=== PATIENT | male | born 1960 | race Caucasian/White ===

== ENCOUNTER 2017-01-18 09:00 | Emergency (ER) | payer OTHER ==
[~2017-01-18] VITALS: Ht 182.9 cm; Wt 118.0 kg
[2017-01-18 09:12] VITALS: BP 137/73; PULSE 58; RESP 18; TEMP 98.2; O2SAT 98
[2017-01-18] MEDS ORDERED: ACETAMINOPHEN/HYDROcodone 325 MG/5 MG TAB PO ONE (09:30)
--- NOTE | 2017-01-18 09:31 | PD ---
HPI Chief Complaint: Fall Time Seen by Provider: 09:22 Travel History International Travel<30 days: No Contact w/Intl Traveler<30days: No Traveled to known affect area: No History of Present Illness HPI 56-year-old male presents to the emergency department with right foot pain after slip and fall that occurred just prior to arrival. States that he did a split and landed on his right foot and describes it as an inversion. Patient states he has chronic back pain and feels that his muscles are tightening up. Patient denies numbness or tingling, weakness of the extremities. Patient does have full range of motion of the right foot is having pain on the outside of his right foot. Patient is not taking anything for this pain. He is diabetic but denies neuropathy. PFSH Past Medical History High Cholesterol: Yes Diabetes: Yes Patient Takes Glucophage: Yes (METFORMIN ) Past Surgical History Other Surgery: Yes (FACIAL ) Social History Alcohol Use: No Tobacco Use: No Substance Use: No (HX OF 2009) Allergies-Medications (Allergen,Severity, Reaction): Coded Allergies: meperidine (Verified Allergy, Severe, Hallucinations, 01/18/17) Reported Meds & Prescriptions Reported Meds & Active Scripts Active Robaxin (Methocarbamol) 500 Mg Tab 500 Mg PO TID 3 Days Review of Systems Except as stated in HPI: all other systems reviewed are Neg Physical Exam Narrative GENERAL: Well-nourished, well-developed patient. SKIN: Focused skin assessment warm/dry. HEAD: Normocephalic. EYES: No scleral icterus. No injection or drainage. NECK: Supple, trachea midline. No JVD or lymphadenopathy. CARDIOVASCULAR: Regular rate and rhythm without murmurs, gallops, or rubs. RESPIRATORY: Breath sounds equal bilaterally. No accessory muscle use. MUSCULOSKELETAL: No cyanosis, or edema. BACK: No CVA tenderness. No rash. No point tenderness on palpation of the spine. TTP paraspinous muscles lumbar region Right foot- no obvious ecchymosis or deformities. Tenderness palpation of the fifth metatarsal area. Neurovascular intact BACK: Nontender without obvious deformity. No CVA tenderness. Data Data Last Documented VS Vital Signs Date Time Temp Pulse Resp B/P (MAP) Pulse Ox O2 Delivery O2 Flow Rate FiO2 01/18/17 09:17 18 98 Room Air 01/18/17 09:12 98.2 58 137/73 (94) Orders Orders Foot, Complete (Cfr0asl) (01/18/17 ) Ankle, Complete ([id number]) (01/18/17 ) Acetamin-Hydrocod 325-5 Mg ([place] 5-325 (01/18/17 09:30) Splint Or Brace Apply/Monitor (01/18/17 10:13) Ed Discharge Order (01/18/17 10:13) MDM Medical Decision Making Medical Screen Exam Complete: Yes Emergency Medical Condition: Yes Differential Diagnosis Left ankle sprain versus strain versus fracture Left foot contusion versus fracture versus sprain Lumbar strain versus sprain versus fracture Narrative Course 56-year-old male presents to the emergency department with right foot pain after slip and fall that occurred just prior to arrival. States that he did a split and landed on his right foot and describes it as an inversion. Patient states he has chronic back pain and feels that his muscles are tightening up. Patient denies numbness or tingling, weakness of the extremities. Patient does have full range of motion of the right foot is having pain on the outside of his right foot. Patient is not taking anything for this pain. He is diabetic but denies neuropathy. Patient denies head trauma, LOC, neck pain. No red flags Vital signs stable [facility] but does not take any medication for this chronically. Physical exam- consistent with an ankle and sprain versus contusion, TTP over paraspinous muscles lumbar region. No midline tenderness. X-ray- no fracture Hydrocodone administered in the emergency department Because the patient's chronic back pain prescribed muscle relaxer to reduce the possibility of return to the emergency department. Patient advised follow-up with his primary care physician. Diagnosis Primary Impression: Right ankle sprain Qualified Codes: S93.401A - Sprain of unspecified ligament of right ankle, initial encounter Additional Impressions: Contusion of right foot Qualified Codes: S90.31XA - Contusion of right foot, initial encounter Lumbar strain Qualified Codes: S39.012A - Strain of muscle, fascia and tendon of lower back , initial encounter Referrals: Law Enforcement Officer Primary Care Physician Additional Instructions: Take muscle relaxers sparingly and only as needed for your back discomfort. Continue ice for your ankle and foot pain. May use Tylenol or Motrin per package instructions. He may wrap her foot for comfort. Scripts Methocarbamol (Robaxin) 500 Mg Tab 500 MG PO TID for Muscle Spasm for 3 Days, TAB 0 Refills Prov: Katherine Jean MD 01/18/17 Disposition: 01 DISCHARGE HOME Condition: Stable Olive Cruz Jan 18, 2017 09:31
[2017-01-18] MEDS ORDERED: ROBA500T PO (09:32)
--- NOTE | 2017-01-18 10:02 | RADRPT ---
EXAM DATE/TIME: 01/18/2017 09:45 [facility] COMPARISON: No previous studies available for comparison. INDICATIONS : Right ankle pain post twisting. MEDICAL HISTORY : None. SURGICAL HISTORY : None. ENCOUNTER: Initial ACUITY: 1 day PAIN SCORE: 3/10 LOCATION: Right ankle FINDINGS: Three view exam was performed of the right ankle. The bony structures are in normal alignment. No e vidence of fracture, dislocation, or soft tissue swelling. The ankle mortise is intact. A prominent retrocalcaneal spur. No radiopaque foreign bodies are seen. Bony mineralization is normal. CONCLUSION: No evidence of recent bony injury. Rambo Palma MD on January 18, 2017 at 10:00 Board Certified Radiologist. This report was verified electronically.
--- NOTE | 2017-01-18 10:03 | RADRPT ---
EXAM DATE/TIME: 01/18/2017 09:47 [facility] COMPARISON: No previous studies available for comparison. INDICATIONS : Right foot pain across the matetarsal region post twisting. MEDICAL HISTORY : None. SURGICAL HISTORY : None. ENCOUNTER: Initial ACUITY: 1 day PAIN SCORE: 8/10 LOCATION: Right foot FINDINGS: Three view examination of the right foot demonstrates no soft tissue swelling, dislocation, or fractu re. The tarsal bones appear intact. Degenerative changes in the 1st MTP joint.. The calcaneus is intact. Bony mineralization is normal. CONCLUSION: No evidence of recent bone injury. Rambo Palma MD on January 18, 2017 at 10:00 Board Certified Radiologist. This report was verified electronically.
== END 2017-01-18 10:52 | disposition home or self-care (01) ==
LOC: NEPD 09:00
DX: S93.401A Sprain of unspecified ligament of right ankle, initial encounter (principal); S90.31XA Contusion of right foot, initial encounter; S39.012A Strain of muscle, fascia and tendon of lower back, initial encounter; M54.9 Dorsalgia, unspecified; G89.29 Other chronic pain; E11.9 Type 2 diabetes mellitus without complications; W01.0XXA Fall on same level from slipping, tripping and stumbling without subsequent striking against object, initial encounter; Z79.84 Long term (current) use of oral hypoglycemic drugs
CPT/HCPCS: 73610; 73630; 99283

== ENCOUNTER 2017-07-11 06:43 | Observation (INO) | payer OTHER ==
[2017-07-11] VITALS (11 sets, daily range): BP systolic 90–147; BP diastolic 52–90; PULSE 50–72; RESP 16–22; TEMP 97.5–98.1; O2SAT 93–98
[~2017-07-11] VITALS: Ht 185.4 cm; Wt 119.0 kg
[~2017-07-11 06:43] MED LIST: ROBA500T PO
[2017-07-11] MEDS ORDERED: ASPIRIN 325 MG TAB PO ONE (07:00)
--- NOTE | 2017-07-11 07:06 | PD ---
HPI Chief Complaint: Chest Pain Time Seen by Provider: 06:53 Travel History International Travel<30 days: No Contact w/Intl Traveler<30days: No Traveled to known affect area: No History of Present Illness HPI 57yo M with PMH of HTN, DM, HLD presents to the ED with c/o chest pain for 3 days. Pain is actually left back radiating to chest that is sharp and dull. Started having nausea and diaphoresis last night. Pain is worst with movement. Denies any fever, cough, vomiting, abdominal pain, focal weakness or numbness , trauma. Pt said his brother of [place] in mid 50s and father had heart problems. Pt said he had a stress test recently that was abnormal and had dye in his heart but cannot really describe it. Pt follows at the [place] and does not know further details. Former smoker. Pt had recent right rotator cuff surgery. PFSH Past Medical History High Cholesterol: Yes Diabetes: Yes Patient Takes Glucophage: No Past Surgical History Other Surgery: Yes (FACIAL ) Social History Alcohol Use: No Tobacco Use: No Substance Use: No (HX OF 2009) Allergies-Medications (Allergen,Severity, Reaction): Coded Allergies: meperidine (Verified Allergy, Severe, Hallucinations, 07/11/17) Reported Meds & Prescriptions Reported Meds & Active Scripts Active Metformin (Metformin HCl) 500 Mg Tab 500 Mg PO TIDPC Review of Systems Except as stated in HPI: all other systems reviewed are Neg Physical Exam Narrative GENERAL: 57yo M in mild distress. SKIN: Focused skin assessment warm/dry. HEAD: Atraumatic. Normocephalic. EYES: Pupils equal and round. No scleral icterus. No injection or drainage. ENT: No nasal bleeding or discharge. Mucous membranes pink and moist. NECK: Trachea midline. No JVD. CARDIOVASCULAR: Regular rate and rhythm. No murmur appreciated. RESPIRATORY: No accessory muscle use. Clear to auscultation. Breath sounds equal bilaterally. GASTROINTESTINAL: Abdomen soft, non-tender, nondistended. BACK: Mild ttp left and mid thoracic spine. No mass or step off. No erythema. MUSCULOSKELETAL: No obvious deformities. No clubbing. No cyanosis. +Bilateral lower extremity edema. RUE in sling. NEUROLOGICAL: Awake and alert. No obvious cranial nerve deficits. Motor grossly within normal limits in all extremities. Normal speech. PSYCHIATRIC: Appropriate mood and affect; insight and judgment normal. Data Data Last Documented VS Vital Signs Date Time Temp Pulse Resp B/P (MAP) Pulse Ox O2 Delivery O2 Flow Rate FiO2 07/11/17 10:45 54 20 126/72 (90) 97 Nasal Cannula 2.00 07/11/17 06:48 98.1 Orders Orders Basic Metabolic Panel (Bmp) (07/11/17 06:53) Complete Blood Count With Diff (07/11/17 06:53) Magnesium (Mg) (07/11/17 06:53) Prothrombin Time / Inr (Pt) (07/11/17 06:53) Act Partial Throm Time (Ptt) (07/11/17 06:53) Troponin I (07/11/17 06:53) Chest, Single Ap (07/11/17 06:53) Aspirin (Aspirin) (07/11/17 07:00) Nitroglycerin Sl (Nitrostat Sl) (07/11/17 07:00) Electrocardiogram (07/11/17 06:49) Sodium Chlor 0.9% 1000 Ml Inj (Ns 1000 M (07/11/17 07:45) Morphine Inj (Morphine Inj) (07/11/17 07:45) Ct Pulmonary Angiogram (07/11/17 ) Iohexol 350 Inj (Omnipaque 350 Inj) (07/11/17 09:37) Admit Order (Ed Use Only) (07/11/17 10:57) Labs Laboratory Tests Test 07/11/17 06:55 White Blood Count 5.2 TH/MM3 Red Blood Count 4.97 MIL/MM3 Hemoglobin 14.7 GM/DL Hematocrit 43.3 % Mean Corpuscular Volume 87.1 FL Mean Corpuscular Hemoglobin 29.6 PG Mean Corpuscular Hemoglobin Concent 34.0 % Red Cell Distribution Width 13.9 % Platelet Count 256 TH/MM3 Mean Platelet Volume 9.6 FL Neutrophils (%) (Auto) 47.7 % Lymphocytes (%) (Auto) 36.7 % Monocytes (%) (Auto) 10.4 % Eosinophils (%) (Auto) 4.4 % Basophils (%) (Auto) 0.8 % Neutrophils # (Auto) 2.5 TH/MM3 Lymphocytes # (Auto) 1.9 TH/MM3 Monocytes # (Auto) 0.5 TH/MM3 Eosinophils # (Auto) 0.2 TH/MM3 Basophils # (Auto) 0.0 TH/MM3 CBC Comment DIFF FINAL Differential Comment Prothrombin Time 9.4 SEC Prothromb Time International Ratio 0.9 RATIO Activated Partial Thromboplast Time 24.3 SEC Blood Urea Nitrogen 16 MG/DL Creatinine 1.01 MG/DL Random Glucose 149 MG/DL Calcium Level 8.5 MG/DL Magnesium Level 2.6 MG/DL Sodium Level 140 MEQ/L Potassium Level 4.1 MEQ/L Chloride Level 106 MEQ/L Carbon Dioxide Level 25.6 MEQ/L Anion Gap 8 MEQ/L Estimat Glomerular Filtration Rate 76 ML/MIN Troponin I LESS THAN 0.02 NG/ML MDM Medical Decision Making Medical Screen Exam Complete: Yes Emergency Medical Condition: Yes Interpretation(s) EKG: Sinus bradycardia at 58bpm. No ST segment elevation or depression. Differential Diagnosis ACS vs. musculoskeletal pain vs. costochondritis Narrative Course 57yo M with atypical chest pain. However, pt has multiple cardiac risk factors so will obtain labs including cardiac enzyme, CXR. Pt seen at end of my shift and sign out to next team to follow up. Diagnosis Primary Impression: Chest pain Qualified Codes: R07.9 - Chest pain, unspecified Admitting Information Admitting Physician Requests: Observation Scripts Metformin (Metformin) 500 Mg Tab 500 MG PO TIDPC for Blood Sugar Management, #90 TAB 0 Refills Prov: Duke Pichardo 07/11/17 Mikayla Mccormack DO July 11, 2017 07:06
[2017-07-11] MEDS: NITROGLYCERIN 0.4 MG SL 25 TABS/BTL SL SCH ×3 (07:27→07:37)
[2017-07-11] MEDS ORDERED: METF500T PO ×2 (07:45→16:40)
[2017-07-11] MEDS ORDERED: MORPHINE SULFATE 4 MG/ML INJ IV PUSH ONE (07:45)
[2017-07-11] MEDS ORDERED: SODIUM CHLOR 0.9% 1000 ML INJ 1,000 ML IV SCH (07:45)
--- NOTE | 2017-07-11 07:55 | RADRPT ---
EXAM DATE/TIME: 07/11/2017 07:42 [facility] COMPARISON: No previous studies available for comparison. INDICATIONS : Chest pain. MEDICAL HISTORY : None. SURGICAL HISTORY : None. ENCOUNTER: Initial ACUITY: 3 days PAIN SCORE: 8/10 LOCATION: Bilateral chest FINDINGS: A single view of the chest demonstrates the lungs to be symmetrically aerated without evidence of mas s, infiltrate or effusion. There is a faint questionable 5 mm pulmonary nodule overlying the right up per lung. The cardiomediastinal contours are unremarkable. Osseous structures are intact. CONCLUSION: 1. No acute pulmonary infiltrates. 2. Questionable faint 5 mm pulmonary nodule overlying right upper lung. Recommend a noncontrast CT th orax on a nonemergent outpatient basis for further evaluation. Brenden Malagon MD on July 11, 2017 at 7:52 Board Certified Radiologist. This report was verified electronically.
[2017-07-11 08:09] LABS: AUTOMATED NEUTROPHIL # 2.5 TH/MM3 (1.8-7.7); BASOPHIL % 0.8 % (0.0-2.0); EOSINOPHIL # 0.2 TH/MM3 (0-0.4); EOSINOPHIL % 4.4 % (0.0-4.0); HEMATOCRIT 43.3 % (39.0-51.0); HEMOGLOBIN 14.7 GM/DL (13.0-17.0); LYMPH % 36.7 % (9.0-44.0); LYMPHOCYTE # 1.9 TH/MM3 (1.0-4.8); MEAN CELL VOLUME 87.1 FL (80.0-100.0); MEAN CORPUSCULAR HEMOGLOBIN 29.6 PG (27.0-34.0); MEAN PLATELET VOLUME 9.6 FL (7.0-11.0); MONO % 10.4 % (0.0-8.0); MONOCYTE # 0.5 TH/MM3 (0-0.9); NEUT % 47.7 % (16.0-70.0); PLATELET COUNT 256 TH/MM3 (150-450); RED BLOOD COUNT 4.97 MIL/MM3 (4.50-5.90); RED CELL DISTRIBUTION WIDTH 13.9 % (11.6-17.2); WHITE BLOOD COUNT 5.2 TH/MM3 (4.0-11.0)
[2017-07-11 08:20] LABS: INTERNATIONAL NORMALIZED RATIO 0.9 RATIO; PROTHROMBIN TIME - PATIENT 9.4 SEC (9.8-11.6)
[2017-07-11 08:33] LABS: TROPONIN I LESS THAN 0.02 NG/ML (0.02-0.05)
[2017-07-11 08:35] LABS: BICARBONATE 25.6 MEQ/L (21.0-32.0); BLOOD UREA NITROGEN 16 MG/DL (7-18); CALCIUM 8.5 MG/DL (8.5-10.1); CHLORIDE 106 MEQ/L (98-107); CREATININE 1.01 MG/DL (0.60-1.30); GLOMERULAR FILTRATION RATE 76 ML/MIN (>89); GLUCOSE,RANDOM 149 MG/DL (74-106); SODIUM (NA) 140 MEQ/L (136-145)
[2017-07-11 08:36] LABS: MAGNESIUM 2.6 MG/DL (1.5-2.5)
[2017-07-11] MEDS ORDERED: IOHEXOL 350 MG/ML 10 ML VIAL (for RAD DIAG) IVCONTRAST ONE (09:37)
--- NOTE | 2017-07-11 10:46 | RADRPT ---
EXAM DATE/TIME: 07/11/2017 09:19 [facility] COMPARISON: No previous studies available for comparison. INDICATIONS : Left back pain that radiates to the chest for three days. IV CONTRAST: 70 cc Omnipaque 350 (iohexol) IV RADIATION DOSE: 10.68 CTDIvol (mGy) MEDICAL HISTORY : Diabetes mellitus type 2. SURGICAL HISTORY : None. ENCOUNTER: Initial ACUITY: 3 days PAIN SCALE: 5/10 LOCATION: Left chest TECHNIQUE: Volumetric scanning of the chest was performed using a pulmonary embolism protocol MIP images were re constructed. Using automated exposure control and adjustment of the mA and/or kV according to patien t size, radiation dose was kept as low as reasonably achievable to obtain optimal diagnostic quality images. DICOM format image data is available electronically for review and comparison. Follow-up recommendations for detected pulmonary nodules are based at a minimum on nodule size and pa tient risk factors according to Fleischner Society Guidelines. FINDINGS: Mild interstitial changes are present with minimal cardiomegaly. There is no central pulmonary emboli. There is no axillary or mediastinal adenopathy appreciated The upper abdominal contents are unremarkable. The portion of the bony skeleton visualized is unremarkable. CONCLUSION: Negative for central pulmonary emboli Rancho Corley MD FACR on July 11, 2017 at 9:36 Board Certified Radiologist. This report was verified electronically.
[2017-07-11] MEDS ORDERED: KETOROLAC TROMETHAMINE 30 MG/ML (IVP) VIAL IVP ONE (11:30)
[2017-07-11] MEDS ORDERED: ACETAMINOPHEN 500 MG CPLT PO PRN (11:30)
[2017-07-11] MEDS ORDERED: ALPRAZolam 0.25 MG TAB PO PRN (11:30)
[2017-07-11] MEDS ORDERED: ONDANSETRON ODT 4 MG TAB PO PRN (11:30)
[2017-07-11] MEDS ORDERED: cloNIDine HCL 0.1 MG TAB PO PRN (11:30)
[2017-07-11] MEDS ORDERED: ONDANSETRON HCL 4 MG/2 ML VIAL IV PUSH PRN (11:30)
[2017-07-11] MEDS ORDERED: PANTOPRAZOLE SOD 40 MG DELAYED RELEASE TAB PO SCH (11:30)
[2017-07-11] MEDS ORDERED: RESP: ALBUTEROL 2.5 MG/IPRATROPIUM 0.5 MG NEB (PRN) INH (11:30)
--- NOTE | 2017-07-11 11:41 | HHI.HP ---
HPI Primary Care Physician [facility] Chief Complaint Chest pain History of Present Illness This is a 57-year-old male history of diabetes and hyperlipidemia that presents to ED via private vehicle with a complaint of 3 days of constant back discomfort that radiates anteriorly to his chest. He also will have a sharp pain mixed in with it that is brought on with certain movements it will last a few seconds at a time. Denied shortness of breath and nausea for the most part diaphoresis but states that yesterday he did get a little sweaty with 1 of the episodes of discomfort. Denies history of heart disease but states he was evaluated recently at the [facility] in [facility]. States he had an abnormal stress test in February and then subsequently had a cardiac catheterization and he states that he was told it was normal. States he was placed on cholesterol medicine recently. He has been on metformin for diabetes for quite some time. Denies recent illness but states he had a right rotator cuff repair a week and a half ago. Review of Systems General: Patient denies fevers, chills, and recent travel. HEENT: Patient denies headache, sore throat, difficulty swallowing. Cardiovascular: Has the chest discomfort as mentioned above. Denies sensation of heart beating rapidly or irregularly. No syncope. Respiratory: Denies shortness of breath or inspirational chest discomfort. Denies coughing wheezing or hemoptysis. GI: Patient denies nausea, vomiting, diarrhea, abdominal pain, bloody stools. Musculoskeletal: Complains of right shoulder/arm discomfort, states recently had right rotator cuff repair. Patient denies joint edema. Denies calf pain or edema. Neurovascular: Patient denies numbness, tingling, weakness in extremities. Denies headache. Endocrine: Denies polyuria and polydipsia. Hematologic: Denies easy bruising. Skin: Denies rash or itching. Past Family Social History Allergies: Coded Allergies: meperidine (Verified Allergy, Severe, Hallucinations, 07/11/17) Past Medical History Diabetes, hyperlipidemia, recent right rotator cuff repair, past history tobacco abuse but quit smoking 2011. States he had a cardiac catheterization in March and states that he was told that it was normal. Denies hypertension and CAD. Past Surgical History States had a cardiac catheterization in March of this year and states he was told it was normal. Right rotator cuff repair about 1-1/2 weeks ago. Reported Medications Reported Meds & Active Scripts Active Reported Metformin (Metformin HCl) 500 Mg Tab 500 Mg PO TIDPC Family History His father had MIs in his 60s. States his brother age 54 of congestive heart failure. Social History Quit smoking 2011. Prior to that he smoked about 1 pack a series daily for 35 years. Has on average 1 beer per day. Denies illicit drug use. He is . Physical Exam Vital Signs Vital Signs Date Time Temp Pulse Resp B/P (MAP) Pulse Ox O2 Delivery O2 Flow Rate FiO2 07/11/17 07:42 50 18 127/70 (89) 93 Nasal Cannula 2.00 07/11/17 07:35 52 18 103/52 (69) 93 Nasal Cannula 2.00 07/11/17 07:32 72 16 90/53 (65) 93 Room Air 07/11/17 07:29 Room Air 07/11/17 06:48 98.1 65 20 147/90 (109) 98 Physical Exam GENERAL: This is a well-nourished, well-developed patient, in no apparent distress. Patient speaks in clear complete sentences. Patient is pleasant. His is also at the bedside. HEENT: Head is atraumatic and normocephalic. Neck is supple without lymphadenopathy and trachea is midline. No JVD or carotid bruits. CARDIOVASCULAR: Regular rate and rhythm without murmurs, gallops, or rubs. RESPIRATORY: Clear to auscultation. Breath sounds equal bilaterally. No wheezes , rales, or rhonchi. Chest wall is tender as well as being some discomfort when palpating mid back. Discomfort in both ears are worsened with twisting of the torso. No use of accessory muscles. GASTROINTESTINAL: Abdomen is nontender, nondistended. Abdomen soft. No obvious pulsatile mass or bruit. No CVA tenderness. Strong femoral pulses bilaterally. Normal bowel sounds in all quadrants. MUSCULOSKELETAL: Discomfort with flexion extension of his back. Patient is moving left upper and bilateral lower extremities freely. There is limited mobility in the right arm secondary to recent right rotator cuff repair. No calf tenderness or edema, no Homans sign. Strong pulses in upper and lower extremities. NEUROLOGICAL: Patient is alert and oriented. Cranial nerves 2-12 are grossly intact. No focal deficits and speech is clear. SKIN: No rash and turgor is normal. Laboratory Laboratory Tests Test 07/11/17 06:55 White Blood Count 5.2 Red Blood Count 4.97 Hemoglobin 14.7 Hematocrit 43.3 Mean Corpuscular Volume 87.1 Mean Corpuscular Hemoglobin 29.6 Mean Corpuscular Hemoglobin Concent 34.0 Red Cell Distribution Width 13.9 Platelet Count 256 Mean Platelet Volume 9.6 Neutrophils (%) (Auto) 47.7 Lymphocytes (%) (Auto) 36.7 Monocytes (%) (Auto) 10.4 Eosinophils (%) (Auto) 4.4 Basophils (%) (Auto) 0.8 Neutrophils # (Auto) 2.5 Lymphocytes # (Auto) 1.9 Monocytes # (Auto) 0.5 Eosinophils # (Auto) 0.2 Basophils # (Auto) 0.0 CBC Comment DIFF FINAL Differential Comment Prothrombin Time 9.4 Prothromb Time International Ratio 0.9 Activated Partial Thromboplast Time 24.3 Blood Urea Nitrogen 16 Creatinine 1.01 Random Glucose 149 Calcium Level 8.5 Magnesium Level 2.6 Sodium Level 140 Potassium Level 4.1 Chloride Level 106 Carbon Dioxide Level 25.6 Anion Gap 8 Estimat Glomerular Filtration Rate 76 Troponin I LESS THAN 0.02 Result Diagram: 07/11/17 0655 07/11/17 0655 Imaging Last 48 hours Impressions Chest X-Ray 07/11/17 0653 Signed Impressions: Service Date/Time: Tuesday, July 11, 2017 07:42 - CONCLUSION: 1. No acute pulmonary infiltrates. 2. Questionable faint 5 mm pulmonary nodule overlying right upper lung. Recommend a noncontrast CT thorax on a nonemergent outpatient basis for further evaluation. Brenden Malagon MD CT Angiography 07/11/17 0000 Signed Impressions: Service Date/Time: Tuesday, July 11, 2017 09:19 - CONCLUSION: Negative for central pulmonary emboli Rancho Corley MD FACR Course Initial EKG sinus bradycardia rate [address] segment depressions or elevations. Caprini VTE Risk Assessment Caprini VTE Risk Assessment: No/Low Risk (score <= 1) Caprini Risk Assessment Model Point Value = 1 Point Value = 2 Point Value = 3 Point Value = 5 Age 41-60 Minor surgery BMI > 25 kg/m2 Swollen legs Varicose veins or History of unexplained or recurrent spontaneous Oral contraceptives or hormone replacement Sepsis (< 1 month) Serious lung disease, including pneumonia (< 1 month) Abnormal pulmonary function Acute myocardial infarction Congestive heart failure (< 1 month) History of inflammatory bowel disease Medical patient at bed rest Age 61-74 Arthroscopic surgery Major open surgery (> 45 min) Laparoscopic surgery (> 45 min) Malignancy Confined to bed (> 72 hours) Immobilizing plaster cast Central venous access Age >= 75 History of VTE Family history of VTE Factor V Leiden Prothrombin [id number] Lupus anticoagulant Anticardiolipin antibodies Elevated serum homocysteine Heparin-induced thrombocytopenia Other congenital or acquired thrombophilia Stroke (< 1 month) Elective arthroplasty Hip, pelvis, or leg fracture Acute spinal cord injury (< 1 month) Prophylaxis Regimen Total Risk Factor Score Risk Level Prophylaxis Regimen 0-1 Low Early ambulation 2 Moderate Order ONE of the following: *Sequential Compression Device (SCD) *Heparin 5000 units SQ BID 3-4 Higher Order ONE of the following medications: *Heparin 5000 units SQ TID *Enoxaparin/Lovenox 40 mg SQ daily (WT < 150 kg, CrCl > 30 mL/min) *Enoxaparin/Lovenox 30 mg SQ daily (WT < 150 kg, CrCl > 10-29 mL/min) *Enoxaparin/Lovenox 30 mg SQ BID (WT < 150 kg, CrCl > 30 mL/min) AND/OR *Sequential Compression Device (SCD) 5 or more Highest Order ONE of the following medications: *Heparin 5000 units SQ TID (Preferred with Epidurals) *Enoxaparin/Lovenox 40 mg SQ daily (WT < 150 kg, CrCl > 30 mL/min) *Enoxaparin/Lovenox 30 mg SQ daily (WT < 150 kg, CrCl > 10-29 mL/min) *Enoxaparin/Lovenox 30 mg SQ BID (WT < 150 kg, CrCl > 30 mL/min) AND *Sequential Compression Device (SCD) Assessment and Plan Assessment and Plan * Chest pain: His symptoms seem atypical. [facility] as he states he had a recent cardiac catheterization after having an abnormal stress test. Patient will be seen by Dr. Geovani Pereyra of cardiology in the chest pain center. Further plan will be determined after that evaluation as well as with the records [facility] the [facility]. Regardless, after discharge [facility]. He should return to ED for interval issues. * Hyperlipidemia: Patient states he is on statin therapy but cannot recall the name. He should continue this. * Diabetes: Patient will need to hold metformin for 2 days as he had recent contrast study. Follow diabetic diet. She also discuss with [facility] being [facility] an MARYAM inhibitor as he is diabetic. Patient is stable at this time. He is agreeable to this plan. Duke Pichardo July 11, 2017 11:41
[2017-07-11] MEDS ORDERED: GLUCAGON 1 MG/ML VIAL OTHER PRN (11:45)
[2017-07-11] MEDS ORDERED: DEXTROSE 50% IN WATER 50 ML VIAL(D50) IV PUSH PRN (11:45)
[2017-07-11] MEDS ORDERED: INSULIN ASPART SUPPLEMENTAL SCALE SQ SCH (12:00)
[2017-07-11 12:29] LABS: TROPONIN I LESS THAN 0.02 NG/ML (0.02-0.05)
--- NOTE | 2017-07-11 14:04 | PD ---
Data Data Last Documented VS Vital Signs Date Time Temp Pulse Resp B/P (MAP) Pulse Ox O2 Delivery O2 Flow Rate FiO2 07/11/17 10:45 54 20 126/72 (90) 97 Nasal Cannula 2.00 07/11/17 06:48 98.1 Orders Orders Basic Metabolic Panel (Bmp) (07/11/17 06:53) Complete Blood Count With Diff (07/11/17 06:53) Magnesium (Mg) (07/11/17 06:53) Prothrombin Time / Inr (Pt) (07/11/17 06:53) Act Partial Throm Time (Ptt) (07/11/17 06:53) Troponin I (07/11/17 06:53) Chest, Single Ap (07/11/17 06:53) Aspirin (Aspirin) (07/11/17 07:00) Nitroglycerin Sl (Nitrostat Sl) (07/11/17 07:00) Electrocardiogram (07/11/17 06:49) Sodium Chlor 0.9% 1000 Ml Inj (Ns 1000 M (07/11/17 07:45) Morphine Inj (Morphine Inj) (07/11/17 07:45) Ct Pulmonary Angiogram (07/11/17 ) Iohexol 350 Inj (Omnipaque 350 Inj) (07/11/17 09:37) Admit Order (Ed Use Only) (07/11/17 10:57) Labs Laboratory Tests Test 07/11/17 06:55 White Blood Count 5.2 TH/MM3 Red Blood Count 4.97 MIL/MM3 Hemoglobin 14.7 GM/DL Hematocrit 43.3 % Mean Corpuscular Volume 87.1 FL Mean Corpuscular Hemoglobin 29.6 PG Mean Corpuscular Hemoglobin Concent 34.0 % Red Cell Distribution Width 13.9 % Platelet Count 256 TH/MM3 Mean Platelet Volume 9.6 FL Neutrophils (%) (Auto) 47.7 % Lymphocytes (%) (Auto) 36.7 % Monocytes (%) (Auto) 10.4 % Eosinophils (%) (Auto) 4.4 % Basophils (%) (Auto) 0.8 % Neutrophils # (Auto) 2.5 TH/MM3 Lymphocytes # (Auto) 1.9 TH/MM3 Monocytes # (Auto) 0.5 TH/MM3 Eosinophils # (Auto) 0.2 TH/MM3 Basophils # (Auto) 0.0 TH/MM3 CBC Comment DIFF FINAL Differential Comment Prothrombin Time 9.4 SEC Prothromb Time International Ratio 0.9 RATIO Activated Partial Thromboplast Time 24.3 SEC Blood Urea Nitrogen 16 MG/DL Creatinine 1.01 MG/DL Random Glucose 149 MG/DL Calcium Level 8.5 MG/DL Magnesium Level 2.6 MG/DL Sodium Level 140 MEQ/L Potassium Level 4.1 MEQ/L Chloride Level 106 MEQ/L Carbon Dioxide Level 25.6 MEQ/L Anion Gap 8 MEQ/L Estimat Glomerular Filtration Rate 76 ML/MIN Troponin I LESS THAN 0.02 NG/ML MDM Supervised Visit with [facility]: No Narrative Course I took over care of this patient from Dr. Mccormack. He presents with atypical left- sided chest pain which is somewhat reproducible with movement. I suspect it is musculoskeletal however he also has some dyspnea and had surgery on his rotator cuff a week ago. CT pulmonary angiogram was obtained which was reassuring. Patient will be observed in the chest pain center. He reports he thinks he had a cardiac catheterization within the year but is uncertain what the results are and is not sure that is the procedure that it was. We will obtain records from the [place]. Diagnosis Primary Impression: Chest pain Qualified Codes: R07.9 - Chest pain, unspecified Admitting Information Admitting Physician Requests: Observation Fatimah Mauricio MD July 11, 2017 14:04
[2017-07-11 15:34] LABS: TROPONIN I LESS THAN 0.02 NG/ML (0.02-0.05)
--- NOTE | 2017-07-11 16:43 | HHI.DCPOC ---
Discharge Care Plan Diagnosis: (1) Chest pain (2) DM (diabetes mellitus) (3) Hyperlipidemia Goals to Promote Your Health DO NOT TAKE METFORMIN FOR TWO DAYS. TALK WITH YOUR DOCTOR ABOUT A MEDICINE CALLED LISINOPRIL, DIABETICS WILL TAKE THIS TO PROTECT THEIR KIDNEYS. * To prevent worsening of your condition and complications * To maintain your health at the optimal level Directions to Meet Your Goals Take your medications as prescribed Follow your dietary instruction Follow activity as directed Keep your appointments as scheduled Take your immunizations and boosters as scheduled If your symptoms worsen call your PCP, if no PCP go to Urgent Care Center or Emergency Room Smoking is Dangerous to Your Health. Avoid second hand smoke Call the 24-hour hour crisis hotline for domestic abuse at [facility] July 11, 2017 16:43
--- NOTE | 2017-07-11 22:17 | EKG ---
Date Performed: 07/11/2017 Time Performed: 06:49:23 PTAGE: 57 years EKG: SINUS BRADYCARDIA BORDERLINE ECG NO PREVIOUS TRACING DOCTOR: Yobani Anderson Interpretating Date/Time 07/11/2017 22:16:02
--- NOTE | 2017-07-12 07:21 | EKG ---
Date Performed: 07/11/2017 Time Performed: 14:49:19 PTAGE: 57 years EKG: SINUS BRADYCARDIA LOW QRS VOLTAGE IN EXTREMITY LEADS BORDERLINE ECG Since PREVIOUS TRACING , no significant change noted PREVIOUS TRACIN07/11/2017 11.58 DOCTOR: Shandra Esquivel Interpretating Date/Time 07/12/2017 07:19:47
--- NOTE | 2017-07-12 07:21 | EKG ---
Date Performed: 07/11/2017 Time Performed: 11:58:04 PTAGE: 57 years EKG: SINUS BRADYCARDIA BORDERLINE ECG Since PREVIOUS TRACING , no significant change noted PREVIOUS TRACIN07/11/2017 06.49 DOCTOR: Shandra Esquivel Interpretating Date/Time 07/13/2017 07:16:57
[2017-07-12] MEDS ORDERED: ASPIRIN 325 MG TAB PO SCH (09:00)
== END 2017-07-11 17:23 | disposition home or self-care (01) ==
LOC: NEPC 06:43 → NEDA 10:59 → NEPFCDU 11:40
PROVIDERS: ADMIT Internal Medicine Cardiovascular Disease; ATTEND Internal Medicine Cardiovascular Disease
DX: R07.89 Other chest pain (principal); R11.0 Nausea; R61 Generalized hyperhidrosis; R00.1 Bradycardia, unspecified; I10 Essential (primary) hypertension; E78.5 Hyperlipidemia, unspecified; E11.9 Type 2 diabetes mellitus without complications; Z87.891 Personal history of nicotine dependence; Z79.84 Long term (current) use of oral hypoglycemic drugs; Z82.49 Family history of ischemic heart disease and other diseases of the circulatory system
CPT/HCPCS: 71045; 71275; 80048; 82550; 82552; 82948; 83735; 84484; 85025; 85610; 85730; 93005; 96374; 96375; 99285; G0378; J1885; J2270; J7030; Q9967